=== PATIENT | male | born 1950 | race African-American/Black ===

== ENCOUNTER 2022-12-23 09:14 | Emergency (ER) | payer MEDICARE, SELFPAY ==
--- NOTE | ~2022-12-23 | XR_ITS ---
EXAMINATION: XR CHEST CLINICAL INFORMATION: Chest pain COMPARISON: None available. TECHNIQUE: 2 views of the chest were obtained. FINDINGS: The cardiac and mediastinal contours are normal. The lungs are clear. There is slight elevation of the left hemidiaphragm. No pleural effusion or pneumothorax. Degenerative changes of the spine. XR/XR chest 2V IMPRESSION: No evidence for acute disease in the chest.
--- NOTE | 2022-12-23 09:19 | ECG_ITS ---
Test Reason : cp Blood Pressure : / mmHG Vent. Rate : 071 BPM Atrial Rate : 071 BPM P-R Int : 144 ms QRS Dur : 086 ms QT Int : 402 ms P-R-T Axes : 048 -13 031 degrees QTc Int : 436 ms Normal sinus rhythm Normal ECG No previous ECGs available Referred By: Generic ED Physician Electronically Signed By:CRICKET RICHMOND
[2022-12-23 09:33] VITALS: BP 166/83; PULSE 71; RESP 18; TEMP 36.8; O2SAT 99; BMI 25.1
[2022-12-23 09:50] LABS: MANUAL DIFF FLAG NO
[2022-12-23 09:53] LABS: Basophils Percent Auto 0.5 % (0-2); Eosinophils Absolute Auto 0.1 X10*3/uL (0.0-0.4); Eosinophils Percent Auto 0.6 % (0-4); Hematocrit 48.6 % (42.0-52.0); Hemoglobin 16.5 g/dl (14.0-18.0); Imm Gran Abs Auto 0.02 X10*3/uL (0.00-0.03); Imm Gran Pct Auto 0.3 % (0.0-0.4); Lymphocytes Absolute Auto 1.3 X10*3/uL (1.2-4.9); Lymphocytes Percent Auto 17.2 % (20-40); Mean Corpuscular Hemoglobin 30.6 pg (27.0-33.0); Mean Corpuscular Volume 90.2 fL (80.0-98.0); Mean Platelet Volume 9.6 fL (9.4-12.4); Monocytes Absolute Auto 0.6 X10*3/uL (0.1-1.2); Monocytes Percent Auto 7.2 % (2-11); Neutrophils Absolute Auto 5.8 x10*3/uL (2.0-8.3); Neutrophils Percent Auto 74.2 % (45-73); Platelet Count 172 X10*3/uL (160-400); Red Blood Count 5.39 X10*6/uL (4.60-5.80); White Blood Count 7.8 X10*3/uL (4.8-10.8)
[2022-12-23 10:16] LABS: Alanine Aminotransferase 22 U/L (0-40); Albumin Level 4.5 g/dL (3.5-5.0); Alkaline Phosphatase 88 U/L (39-117); Anion Gap 10 (12-20); Aspartate Amino Transferase 22 U/L (5-37); Bilirubin Total 0.9 mg/dL (0.0-1.0); Blood Urea Nitrogen 11 mg/dL (9-16); Calcium 10.4 mg/dL (8.4-10.2); Carbon Dioxide 29 mmol/L (22-29); Chloride 106 mmol/L (96-108); Creatinine Clr Calc Pharmacy 75.3; Estimated Glomerular Filt Rate > 60; Glucose Random 114 mg/dL (60-115); Potassium 4.6 mmol/L (3.3-5.1); Sodium 140 mmol/L (135-145); Total Protein 7.7 g/dL (6.5-8.0); Troponin-I High Sensitivity 6.6 ng/L (<3.5-35.0)
[2022-12-23 12:25] VITALS: BP 183/92; PULSE 76; RESP 13; O2SAT 98
--- NOTE | 2022-12-23 13:17 | ED_ITS ---
HPI - Chest Pain General Chief Complaint: Chest Pain Stated Complaint: chest pain Time Seen by Provider: 12/23/22 13:01 Source: patient and family Mode of arrival: ambulatory Limitations: no limitations History of Present Illness HPI narrative: Year old male presents emergency room complaining of chest tightness. This included for past several days. Patient woke up from sleep around 03:00 and felt he could not catch his breath. Patient has no history of this in the past he is here visiting from [place]. Patient does not speak Indonesian patient is visiting his family he denies any fevers cough nausea vomiting or diarrhea he has had no falls. Patient was initially hypertensive. He denies any history of coronary disease acute indications does admit to drinking states he has had decreased appetite. MD complaint: chest pain Related Data Allergies Allergy/AdvReac Type Severity Reaction Status Date / Time No Known Allergies Allergy Verified 12/23/22 09:36 Review of Systems 2 Review of Systems: Review of systems: General: Patient denies any fever chills recent illness or falls Musculoskeletal: Denies back pain or body aches or other injuries HEENT: denies headache, runny nose, ear pain Respiratory: denies shortness of breath, cough Cardiovascular: no chest pain or palpitations : denies dysuria, frequency Abdomen: no nausea vomiting denies abdominal pain Extremities: no swelling, no pain Skin: no diaphoresis Yes all other systems are reviewed and are negative PMFSH Social History Social History Alcohol intake: current Alcohol intake frequency: a few times a week Smoked in Last 30 Days: No Use of substances other than those prescribed or required for medical reasons: No Advance Directives: No Advance Directives Information Provided: No Physical Exam 2 Vital Signs: Vital Signs: Last Vital Signs Temp 100.0 F 12/23/22 14:23 Pulse 72 12/23/22 14:16 Resp 14 12/23/22 14:16 BP 179/88 H 12/23/22 14:16 Pulse Ox 98 12/23/22 14:16 O2 Del Method Room Air 12/23/22 14:16 BMI result Body Mass Index 25.1 General: Well-appearing well-nourished in no signs of distress HEENT: Normocephalic atraumatic Neck: No signs of JVD, no masses no tenderness or lymphadenopathy Cardiovascular: Regular rate and rhythm Respiratory: Clear to auscultation bilaterally Abdomen: Soft nontender no masses Extremities: Normal pedal pulses no signs of edema Skin: Dry warm no rashes Back: No tenderness full ROM Course Course Course Narrative: Patient did not have a XR ordered but his temperature did go up a little. I will send home 2nd troponin is also negative. XR is negative I will send home with PCP follow up. Medications Administered Discontinued Medications Generic Name Dose Route Start Last Admin Trade Name Messiq PRN Reason Stop Dose Admin Al Hydroxide/Mg Hydroxide 30 ml 12/23/22 13:16 12/23/22 13:53 Magnesium Hydrox/Alum Hydrox 30 Ml Oral.Susp PO 12/23/22 13:17 30 ml ONCE ONE Administration Aspirin 324 mg 12/23/22 13:16 12/23/22 13:53 Aspirin 81 Mg Tab.Chew PO 12/23/22 13:17 324 mg ONCE ONE Administration Famotidine 20 mg 12/23/22 13:16 12/23/22 13:53 Famotidine 20 Mg Tablet PO 12/23/22 13:17 20 mg ONCE ONE Administration Sodium Chloride 1,000 mls @ 999 mls/hr 12/23/22 13:15 12/23/22 13:56 Ns IV 12/23/22 14:15 999 mls/hr .Q1H1M MARIANA Administration Medical Decision Making Medical Decision Making MDM Narrative: [age] old male here with low risk chest pain that seems to have resolved at this time. 1st troponin is negative I will repeat with a 2nd troponin. I will give Maalox Pepcid and aspirin at this time. Differential Diagnosis Differential Diagnoses: The differential diagnosis associated with the presentation includes ACS a pneumonia patient is PERC negative I do not think he is having a PE pain is related to GI and serosa give patient X at this time. Admission/Observation Consideration of admission/observation: Escalation of care including admission/observation considered Lab Data MDM Lab Attestation statement: I reviewed the patient's lab results. 12/23/22 09:46 12/23/22 09:46 Labs: Lab Results 12/23/22 12/23/22 Range/Units 09:46 14:12 WBC 7.8 (4.8-10.8) X10*3/uL RBC 5.39 (4.60-5.80) X10*6/uL Hgb 16.5 (14.0-18.0) g/dl Hct 48.6 (42.0-52.0) % MCV 90.2 (80.0-98.0) fL MCH 30.6 (27.0-33.0) pg MCHC 34.0 (31.0-36.0) g/dl RDW 13.0 (11.0-16.0) % Plt Count 172 (160-400) X10*3/uL MPV 9.6 (9.4-12.4) fL Immature Gran % (Auto) 0.3 (0.0-0.4) % Neut % (Auto) 74.2 H (45-73) % Lymph % (Auto) 17.2 L (20-40) % Foster % (Auto) 7.2 (2-11) % Eos % (Auto) 0.6 (0-4) % Baso % (Auto) 0.5 (0-2) % Lymph # (Auto) 1.3 (1.2-4.9) X10*3/uL Foster # (Auto) 0.6 (0.1-1.2) X10*3/uL Eos # (Auto) 0.1 (0.0-0.4) X10*3/uL Baso # (Auto) 0.0 (0.0-0.2) X10*3/uL Abs Immat Gran (auto) 0.02 (0.00-0.03) X10*3/uL Absolute Neuts (auto) 5.8 (2.0-8.3) x10*3/uL Absolute Nucleated RBC 0.000 (0.0-0.012) X10*3/uL Nucleated RBC % (auto) 0.0 (0.0-0.2) /100WBC Sodium 140 (135-145) mmol/L Potassium 4.6 (3.3-5.1) mmol/L Chloride 106 (96-108) mmol/L Carbon Dioxide 29 (22-29) mmol/L Anion Gap 10 L (12-20) BUN 11 (9-16) mg/dL Creatinine 0.87 (0.5-1.4) mg/dL Estim Creat Clear Calc 75.3 Estimated GFR > 60 Random Glucose 114 (60-115) mg/dL Calcium 10.4 H (8.4-10.2) mg/dL Total Bilirubin 0.9 (0.0-1.0) mg/dL AST 22 (5-37) U/L ALT 22 (0-40) U/L Alkaline Phosphatase 88 (39-117) U/L Troponin I High Sens 6.6 6.9 (<3.5-35.0) ng/L Total Protein 7.7 (6.5-8.0) g/dL Albumin 4.5 (3.5-5.0) g/dL Independent Interpretation I performed an independent interpretation of an: EKG and Plain X-Ray Interpretation: EKG rate 71 normal sinus rhythm normal intervals no signs of ischemia interpreted by me Radiology Impression Discussion of test interpretation with radiology: I have reviewed the radiologist's reading. Scores Heart Score History: -0- slightly suspicious ECG: -0- normal Age: -2- > or = 65 Risk factory: -0- no risk factors known Troponin: -0- < or = normal limit Score: 2 Risk: 1.7% Additional Scores PERC Score: Score: 0 Discharge Plan Discharge Clinical Impression: Chest pain Patient Disposition: Home, Self-Care Instructions: Chest Pain (DC) Additional Instructions: You were seen today for chest pain Your XR and labs are all negative. If you have any other concerns worsening pain or any other concerns please return to theED.
[2022-12-23] MEDS: Aspirin 81 MG TAB.CHEW 324 MG PO (13:53)
[2022-12-23] MEDS: Magnesium Hydrox/Alum Hydrox 30 ML ORAL.SUSP PO (13:53)
[2022-12-23] MEDS: Famotidine 20 MG TABLET PO (13:53)
[2022-12-23] MEDS: 0.9 % Sodium Chloride 1,000 ML 999 ML IV (13:56)
[2022-12-23 14:16] VITALS: BP 179/88; PULSE 71; PULSE 72; RESP 14; O2SAT 98
[2022-12-23 14:23] VITALS: TEMP 37.8
[2022-12-23 14:37] LABS: Troponin-I High Sensitivity 6.9 ng/L (<3.5-35.0)
[2022-12-23 15:52] VITALS: BP 160/86; PULSE 78; RESP 18; TEMP 36.4; O2SAT 98
== END 2022-12-23 15:50 | disposition home or self-care (01) ==
PROVIDERS: Emergency Provider Student in an Organized Health Care Education/Training Program
DX: R07.89 Other chest pain (principal); R06.02 Shortness of breath; Z79.899 Other long term (current) drug therapy
CPT/HCPCS: 36415; 71046; 80053; 84484; 85025; 93005; 99285

== ENCOUNTER 2025-01-20 09:52 | Emergency (ER) | payer MEDICARE, SELFPAY ==
--- NOTE | ~2025-01-20 | CT_ITS ---
EXAMINATION: CT HEAD WITHOUT IV CONTRAST HISTORY: blurred vision. TECHNIQUE: Unenhanced helical CT of the head was performed per standard departmental protocol. Coronal and sagittal reformats of the head were also evaluated. One or more of the following techniques was used for dose reduction: Automated exposure control, adjustment of the mA and/or kV according to patient size, use of iterative reconstruction technique. DLP: 677 mGy-cm COMPARISON: There are no prior studies available for comparison. FINDINGS: BRAIN: There is diffuse prominence of the ventricular system and cortical sulci, consistent with atrophy. Periventricular and subcortical white matter hypodensities are noted which are nonspecific, but often seen in the setting of small vessel ischemic disease. There is a 1.6 cm hyperdense extra-axial mass along the inner table of the left frontal bone which likely represents a meningioma. There is no edema of the underlying brain. There is no mass effect or midline shift. No intra- or extra-axial fluid collections are identified. SINUSES: The visualized paranasal sinuses are clear. The mastoid air cells and middle ear cavities are well pneumatized. ORBITS: The visualized orbits are unremarkable. BONES/SOFT TISSUES: The extracranial soft tissues are unremarkable. The calvarium is intact. No suspicious lytic or sclerotic lesions. CT/CT head/brain wo IV con IMPRESSION: Probable 1.6 cm left frontal meningioma. This could be confirmed with MRI without and with contrast. No significant mass effect. No evidence of intracranial hemorrhage. Electronically signed by: Nacho Dixon MD 01/20/2025 10:20 AM EDT
[2025-01-20 09:58] VITALS: BP 189/86; PULSE 68; RESP 20; TEMP 36.6; O2SAT 98; BMI 26.6
--- NOTE | 2025-01-20 09:59 | ED_ITS ---
[facility] - General Adult General Chief complaint: Dizziness Stated complaint: Dizziness, blurred vision, SOB Time Seen by Provider: 01/20/25 10:54 Source: patient, family (Girlfriend) and tax clerk Mode of arrival: ambulatory Limitations: no limitations History of Present Illness ED Provider: HPI narrative: 74-year-old male, drinks alcohol on regular basis from Friday to Friday has a case of beer and a small bottle of whiskey, moved to [facility] about 2 years ago has not had any medical attention, he becomes dizzy and lightheaded, these are periodic episodes, no chest pain no shortness of breath reported but girlfriend stated that 1 time he did have chest pain, no ongoing pain at this time, this is been going on for the past 1 week. No weakness in upper or lower extremities Related Data Previous Rx's ?Medication ?Instructions ?Recorded amlodipine 5 mg tablet 5 mg PO DAILY 90 days #90 ta bs 01/20/25 meclizine 12.5 mg tablet 12.5 mg PO TID PRN vertigo 5 days 01/20/25 #20 tabs Allergies Allergy/AdvReac Type Severity Reaction Status Date / Time No Known Allergies Allergy Verified 01/20/25 10:01 Review of Systems 2 Constitutional: Constitutional: Reports as per [facility] Social History Social History Alcohol intake: current Alcohol intake frequency: a few times a week Physical Exam ED Vital Signs: Vital Signs - 24 hr 01/20/25 09:58 Temperature 97.8 F Pulse Rate 68 Respiratory Rate 20 Blood Pressure 189/86 H Pulse Oximetry 98 Oxygen Delivery Method Room Air BMI result Body Mass Index 26.6 Const Other: General: ?Appears of stated age ? ?PERRLA, EOMI, MMM, ? Neck: Supple, no LAD ? ?CV: RRR, no obvious murmurs appreciated ? ?Resp: ?No wheezing rales rhonchi no stridor moving air well ? Abd: ?Bowel sounds are present, no tenderness no rebound no rigidity ? ?MSK: FROM, strength 5/5 all extremities ? Skin: Warm, dry, intact, ? ?Neuro: ?Alert and oriented x3, moving upper and lower extremities symmetrically, no obvious facial asymmetry noted, cranial nerves 2-12 intact, no left-sided horizontal nonsustained nystagmus with outpatient having any symptoms, no vertical or rotary nystagmus, no dysmetria upper or lower extremities Course Course Course Narrative: This is a rapid medical exam performed by Paula Marroquin NP: Additional HPI, ROS, PE not included below will be deferred to primary provider. Patient is a 74y/o M with unknown pmhx, moved here from [place] a few years ago, presenting with girlfriend who reports that for the past week he has been having episodes where he becomes lightheaded/dizzy, diaphoretic with blurred vision. One episode of chest pain which resolved spontaneously, none since. Plan: EKG, labs, CT head Medical Decision Making Medical Decision Making [facility] Narrative: 11:05 AM 01/20/2025 (Dr. Gilmer Austin): His physical examination is reassuring, he has left-sided horizontal nystagmus without any evidence for symptoms, no evidence for central causes such as cerebellar stroke or thalamic stroke on physical examination that would result in sensory deficits or vertigo, he does drink quite a bit and I spoke to the patient regarding cutting down on his drinking, it was noted that during his recent visits he has had hypotension, and I will initiate him on on antihypertensive medications until he is able to see his PCP, he does have insurance apparently I believe Medicare but he is awaiting [employer]. His workup today included CT of the brain that revealed what appears to be slightly frontal hemangioma which she would be causing any symptoms there was no mass effect outpatient brain MRI would need to be considered nothing to be done at this time in the emergently I discussed this with the patient and his girlfriend who is the 1 who is more involved in his care regarding his health, he has had hematuria that would need to be followed up as well Differential Diagnosis Differential Diagnoses: The differential diagnosis associated with the presentation includes (Dehydration, dysrhythmia, ACS, BPPV, cerebellar stroke, acute angle closure glaucoma,) Admission/Observation Consideration of admission/observation: Escalation of care including admission/observation considered Lab Data [facility] Lab Attestation statement: I reviewed the patient's lab results. 01/20/25 10:29 01/20/25 10:29 Labs: Lab Results 01/20/25 Range/Units 10:29 WBC 5.0 (4.8-10.8) X10*3/uL RBC 4.92 (4.60-5.80) X10*6/uL Hgb 13.4 L (14.0-18.0) g/dl Hct 41.1 L (42.0-52.0) % MCV 83.5 (80.0-98.0) fL MCH 27.2 (27.0-33.0) pg MCHC 32.6 (31.0-36.0) g/dl RDW 13.7 (11.0-16.0) % Plt Count 193 (160-400) X10*3/uL MPV 9.3 L (9.4-12.4) fL Immature Gran % (Auto) 0.2 (0.0-0.4) % Neut % (Auto) 58.0 (45-73) % Lymph % (Auto) 27.6 (20-40) % Cavalier % (Auto) 10.0 (2-11) % Eos % (Auto) 2.8 (0-4) % Baso % (Auto) 1.4 (0-2) % Lymph # (Auto) 1.4 (1.2-4.9) X10*3/uL Cavalier # (Auto) 0.5 (0.1-1.2) X10*3/uL Eos # (Auto) 0.1 (0.0-0.4) X10*3/uL Baso # (Auto) 0.1 (0.0-0.2) X10*3/uL Abs Immat Gran (auto) 0.01 (0.00-0.03) X10*3/uL Absolute Neuts (auto) 2.9 (2.0-8.3) x10*3/uL Absolute Nucleated RBC 0.000 (0.0-0.012) X10*3/uL Nucleated RBC % (auto) 0.0 (0.0-0.2) /100WBC PT 11.1 (10.9-12.4) SEC INR 1.0 (0.9-1.1) Sodium 142 (135-145) mmol/L Potassium 4.0 (3.3-5.1) mmol/L Chloride 109 H (96-108) mmol/L Carbon Dioxide 28 (22-29) mmol/L Anion Gap 9 L (12-20) BUN 13 (9-16) mg/dL Creatinine 0.95 (0.5-1.4) mg/dL Estim Creat Clear Calc 64.7 Estimated GFR > 60 Random Glucose 98 (60-115) mg/dL Calcium 9.0 D (8.4-10.2) mg/dL Magnesium 2.1 (1.6-2.6) mg/dL Total Bilirubin 0.5 (0.0-1.0) mg/dL AST 27 (5-37) U/L ALT 23 (0-40) U/L Alkaline Phosphatase 96 (39-117) U/L Total Protein 6.8 (6.5-8.0) g/dL Albumin 4.0 (3.5-5.0) g/dL Urine Color Yellow Urine Appearance Clear Urine pH 5.5 (5.0-9.0) Ur Specific Turner 1.020 (1.005-1.025) Urine Protein 30 (1+) H (Neg-Trace) mg/dL Urine Glucose (UA) Negative (Negative) mg/dL Urine Ketones Negative (Negative) mg/dL Urine Blood Moderate (2+) H (Negative) Urine Nitrite Negative (Negative) Ur Leukocyte Esterase Negative (Negative) Urine RBC 11-20 H (0-2) /HPF Urine WBC 0-5 (0-5) /HPF Ur Squamous Epith Cells 0-2 (0-2) /HPF Urine Bacteria None Seen (None Seen) Hyaline Casts 0-2 (0-2) /LPF COVID-19 (AMOL) Negative (Negative) COVID-19 Clin Com See Note Influenza Type A ([facility]) Negative (Negative) Influenza Type B (QUY[facility]) Negative (Negative) Influenza A & B Note See Note Independent Interpretation I performed an independent interpretation of an: EKG (68 beats per minute otherwise normal ECG without dysrhythmia, AV digna blocks or ST-T changes to suspect underlying ACS, my independent interpretation) Radiology Impression Discussion of test interpretation with radiology: I have reviewed the radiologist's reading. ( CT/CT head/brain wo IV con IMPRESSION: Probable 1.6 cm left frontal meningioma. This could be confirmed with MRI without and with contrast. No significant mass effect. No evidence of intracranial hemorrhage.) Independent Historian Clinical information obtained from an independent historian. History obtained from or confirmed by: Spouse (Girlfriend) Chronic Conditions Patient?s care impacted by: Hypertension Discharge Plan Discharge Clinical Impression: Dizziness, Hypertension Patient Disposition: Home, Self-Care Instructions: Hypertension (ED) Additional Instructions: Please see the information below about our Patient Portal. You have evidence of high blood pressure I am starting her on medications, there are some findings on your CAT scan potential brain meningioma that has a benign tumor but that needs to be confirmed and you need outpatient brain MRI so you do need to have PCP involved in care, there was also small amount of blood in your urine, this is typically benign but you again we will need follow up for that does make sure there was no inflammation infection or cancer on the inside of your bladder this is again something that is done on outpatient basis with the PCP and not in the ER In the meantime I am starting her blood pressure medications amlodipine 5 mg daily, make sure to drank 5 drinks of alcohol a week, stay well hydrated, meclizine as needed for dizziness Any other issues concerns come back to the ER Portal del paciente Si usted no esta inscrito en el portal de pacientes de [facility] y [facility], recibira sartah invitacion de inscripcion despues de lee visita al [facility] o al [facility] via correo electronico. Tambien puede inscribirse voluntariamente en el portal de pacientes visitando nuestra pagina web: [email or web address] La siguiente informacion sera requerida para acceder al portal: - Lee gema de historia medica de [facility] - Lee direccion de correo electronico personal - Nombre - Fecha de nacimiento Capacidades: Las siguientes capacidades estan disponibles en el portal de pacientes: - Enviar mensajes a algunos doctores - Verificar proximas citas - Acceso a lee historial de rakesh, registro medico e historial de visitas - Ida las condiciones actuales y alergias ida procedimientos y resultados del laboratorio - Ida madonna medicamentos, incluyendo las pautas - Efectos secundarios y precauciones - Completar o llenar formularios / cuestionarios de - Citas solicitadas por lee doctor - Leer los resumenes de reportes medicos de madonna visitas y procedimientos Lenoa acceder a la aplicacion movil: - [employer] en la [employer] o [employer] ([employer] - Descargue la aplicacion - [facility] - Ingrese lee nombre de usuario / Contrasena Prescriptions: New amlodipine 5 mg tablet 5 mg PO DAILY 90 Days Qty: 90 0RF meclizine 12.5 mg tablet 12.5 mg PO TID PRN (Reason: vertigo) 5 Days Qty: 20 0RF Print Language: Dominican
--- NOTE | 2025-01-20 10:01 | ECG_ITS ---
Test Reason : lightheaded Blood Pressure : */* mmHG Vent. Rate : 68 BPM Atrial Rate : 68 BPM P-R Int : 160 ms QRS Dur : 92 ms QT Int : 412 ms P-R-T Axes : 62 -12 33 degrees QTcB Int : 438 ms Normal sinus rhythm Minimal voltage criteria for LVH, may be normal variant ( Tyrese product ) Borderline ECG When compared with ECG of 23-Dec-2022 09:22, No significant change was found Referred By: Linda Marroquin Electronically Signed By: MARAL SINHA MD
[2025-01-20 10:33] LABS: MANUAL DIFF FLAG NO
[2025-01-20 10:34] LABS: Hematocrit 41.1 % (42.0-52.0); Hemoglobin 13.4 g/dl (14.0-18.0); Imm Gran Abs Auto 0.01 X10*3/uL (0.00-0.03); Imm Gran Pct Auto 0.2 % (0.0-0.4); Lymphocytes Absolute Auto 1.4 X10*3/uL (1.2-4.9); Mean Corpuscular HGB Conc 32.6 g/dl (31.0-36.0); Mean Corpuscular Hemoglobin 27.2 pg (27.0-33.0); Mean Corpuscular Volume 83.5 fL (80.0-98.0); NRBC Abs Auto 0.000 X10*3/uL (0.0-0.012); NRBC Pct Auto 0.0 /100WBC (0.0-0.2); Platelet Count 193 X10*3/uL (160-400); Red Blood Count 4.92 X10*6/uL (4.60-5.80); White Blood Count 5.0 X10*3/uL (4.8-10.8)
[2025-01-20 10:36] LABS: Appearance Urine Clear; Glucose Urine UA Negative (Negative); PH 5.5 (5.0-9.0); Specific Gravity - Urine 1.020 (1.005-1.025); UMIC TRIGGER UACC YES
[2025-01-20 10:49] LABS: Alanine Aminotransferase 23 U/L (0-40); Albumin Level 4.0 g/dL (3.5-5.0); Alkaline Phosphatase 96 U/L (39-117); Anion Gap 9 (12-20); Aspartate Amino Transferase 27 U/L (5-37); Blood Urea Nitrogen 13 mg/dL (9-16); Calcium 9.0 mg/dL (8.4-10.2); Carbon Dioxide 28 mmol/L (22-29); Chloride 109 mmol/L (96-108); Creatinine Clr Calc Pharmacy 64.7; Estimated Glomerular Filt Rate > 60; INTERNATIONAL NORM RATIO 1.0 (0.9-1.1); Magnesium 2.1 mg/dL (1.6-2.6); Potassium 4.0 mmol/L (3.3-5.1); Prothrombin Time 11.1 SEC (10.9-12.4); Sodium 142 mmol/L (135-145); Total Protein 6.8 g/dL (6.5-8.0)
[2025-01-20 10:50] LABS: COVID-19 Test Negative (Negative); IDNOW Serial# 58CA691E
[2025-01-20 10:51] LABS: IDNOW Serial# 55D5AD1C; Influenza B2 Negative (Negative)
[2025-01-20 10:54] LABS: Troponin-I High Sensitivity 9.0 ng/L (<3.5-35.0)
[2025-01-20 12:02] VITALS: BP 161/75; PULSE 66; RESP 16; TEMP 36.6; O2SAT 98
== END 2025-01-20 12:03 | disposition home or self-care (01) ==
PROVIDERS: Registered Nurse Emergency; Emergency Provider Emergency Medicine; PCP Physician Assistant
DX: R42 Dizziness and giddiness (principal); I10 Essential (primary) hypertension; R90.89 Other abnormal findings on diagnostic imaging of central nervous system; R31.9 Hematuria, unspecified; H55.00 Unspecified nystagmus
CPT/HCPCS: 36415; 70450; 80053; 81001; 83735; 84484; 85025; 85610; 87502; 87635; 93005; 99283; 99284

== ENCOUNTER → 2025-01-20 10:01 | Outpatient (BNV) | payer MEDICARE, SELFPAY | PROVIDERS: Emergency Provider Emergency Medicine; PCP Physician Assistant; Visit Provider Radiology Diagnostic Radiology | DX: H53.8 Other visual disturbances (principal) | CPT/HCPCS: 70450 ==

== ENCOUNTER → 2025-01-20 10:01 | Outpatient (BNV) | payer MEDICARE, SELFPAY | PROVIDERS: Emergency Provider Emergency Medicine; PCP Physician Assistant; Visit Provider Internal Medicine Cardiovascular Disease | DX: R42 Dizziness and giddiness (principal) | CPT/HCPCS: 93010 ==